=== PATIENT | male | born 1990 | race Caucasian/White ===

== ENCOUNTER → 2019-12-06 14:17 | Outpatient (BNVA) | payer OTHER, SELFPAY | PROVIDERS: PCP Family Medicine; Referring Provider Registered Nurse; Visit Provider Registered Nurse | DX: Z79.899 Other long term (current) drug therapy (principal); F33.2 Major depressive disorder, recurrent severe without psychotic features; F41.1 Generalized anxiety disorder | CPT/HCPCS: 80061; 83036 ==